=== PATIENT | male | born 1955 | race Two or more races ===

== ENCOUNTER 2023-04-06 16:43 | Emergency (ER) | payer OTHER, BC ==
[~2023-04-06] VITALS: Ht 182.9 cm; Wt 94.3 kg
[2023-04-06] MEDS ORDERED: ZESTRIL5 MG (16:49)
[2023-04-06] MEDS ORDERED: TOPROL XL50 M1 (16:49)
[2023-04-06 18:56] LABS: HEMATOCRIT 34.9 % (39.0-48.0); MEAN CELL VOLUME 101.4 fL (80.0-100.00); MEAN CORPUSCULAR HGB CONC 34.5 g/dl (32.0-36.0); PLATELET COUNT 395 K/uL (150-450); RED BLOOD COUNT 3.44 M/uL (4.00-6.00); RED CELL DISTRIBUTION WIDTH 15.1 % (11.5-14.5)
[2023-04-06 19:09] LABS: CALCIUM 8.9 mg/dL (8.5-10.1); CREATININE SERUM 0.92 mg/dL (0.70-1.30); GFR 81.57; POTASSIUM 3.85 mEq/L (3.5-5.1)
[2023-04-06 19:40] LABS: URINE APPEARANCE Clear; URINE BILIRRUBIN Negative (NEGATIVE); URINE BLOOD Negative; URINE COLOR Yellow; URINE GLUCOSE Negative (NEGATIVE); URINE LEUKOCYTE Negative; URINE NITRATE Negative; URINE PROTEIN Negative (NEGATIVE)
[2023-04-06 19:41] LABS: URINE RBC 4.4 uL (0.0-20.8)
[2023-04-06 19:50] LABS: URINE BACTERIA 1.2 uL (0.0-1933); URINE EPITHELIAL CELLS 0.9 uL (0.0-38.8); URINE WBC 0.7 uL (0.0-23.2)
[2023-04-06] MEDS ORDERED: DUI500 PO (20:18)
== END 2023-04-06 20:24 | disposition home or self-care (01) ==
LOC: ER 16:43
PROVIDERS: General Practice
DX: J06.9 Acute upper respiratory infection, unspecified (principal); I10 Essential (primary) hypertension; Z20.822 Contact with and (suspected) exposure to COVID-19
CPT/HCPCS: 36415; 71045; 93005; 96365; 99284; J3490